=== PATIENT | female | born 1960 | race Caucasian/White ===

== ENCOUNTER → 2017-08-17 | Outpatient (CLI) | payer MEDICAID | LOC: PREOP 05:46 | PROVIDERS: ATTEND Surgery | DX: Z01.818 Encounter for other preprocedural examination (principal); Z12.11 Encounter for screening for malignant neoplasm of colon ==

== ENCOUNTER 2017-09-06 11:30 | Outpatient (CLI) | payer MEDICAID ==
[~2017-09-06] VITALS: Ht 175.3 cm; Wt 49.9 kg
[2017-09-06] MEDS ORDERED: OXYB5TAB9 PO (11:31)
== END 2017-09-06 11:36 ==
LOC: PREOP 11:30
PROVIDERS: ATTEND Surgery
DX: Z01.818 Encounter for other preprocedural examination (principal); Z12.11 Encounter for screening for malignant neoplasm of colon